=== PATIENT | male | born 1980 | race Caucasian/White ===

== ENCOUNTER 2025-06-14 14:56 | Emergency (ER) | payer MEDICAID, SELFPAY ==
[2025-06-14 14:59] VITALS: BP 154/93; PULSE 95; RESP 18; TEMP 37; O2SAT 98
--- NOTE | 2025-06-14 15:25 | XR_ITS ---
WS: [id number] XR chest 1V portable [id number] REASON FOR EXAM: shortness of breath FINDINGS: The heart and the mediastinum are within normal limits. Calcified granulomatous disease bilaterally. No acute pulmonary parenchymal or pleural abnormality is identified. Mild degenerative spondylosis in the mid and lower thoracic spine. XR/XR chest 1V portable [id number] IMPRESSION: No acute chest abnormality.
--- NOTE | 2025-06-14 15:25 | ECG_ITS ---
[facility] Date: 2025-06-14 Pat Name: Germain Rushing Department: Room: Gender: Male Data Entry Processor: : 1980 Requested By: Nazanin Quarles Order Number: [id number] Sakshi MD: Rossy Brito M.D. Measurements Intervals [place] Rate: 91 P: 21 NH: 144 QRS: 22 QRSD: 103 T: 49 QT: 299 QTc: 368 Interpretive Statements SINUS RHYTHM NONSPECIFIC T-WAVE ABNORMALITY No previous ECG available for comparison Electronically Signed On 06-15-2025 14:33:55 CDT by Rossy Brito M.D. [email or web address]
--- NOTE | 2025-06-14 15:27 | ED_ITS ---
HPI - SOB/Dyspnea 2 General: Chief Complaint: Shortness of Breath/Dyspnea Stated Complaint: SOB High HR Time Seen by Provider: 06/14/25 15:11 History of Present Illness: HPI Narrative: Patient is 45-year-old gentleman without medical issues presents to the emergency room with shortness of breath and palpitations. He felt like he had a anxiety issue all of a sudden but he was not anxious at all. He stated that he felt like the shortness of breath was sweeping across his chest, followed by tachycardia. He retrieved a oxygen saturation monitor and noted that his heart rate was going in the 120s for no reason, and was causing his shortness of breath. This occurred at noon today. He thought maybe he needed to go for a walk. He went for a walk, and the same thing occurred again. This initially occurred at rest. He has had some upper respiratory symptoms in the last couple weeks that was going through his house. No fevers. Home therapy: Oxygen saturation, magnesium, aspirin Associated symptoms: Reports palpitations; Deny abdominal pain, chest pain, fever(s), lightheadedness, nausea or vomiting Related Data Previous Rx's ?Medication ?Instructions ?Recorded albuterol sulfate 90 mcg/actuation 2 inh inhalation QI D PRN shortness 05/26/25 aerosol inhaler (Ventolin HFA) of breath or wheezing # 8.5 grams mupirocin 2 % topical ointment 1 applic topical BID #2 2 grams 05/26/25 (Centany) sulfamethoxazole 800 1 tab PO BID 10 days #20 tab s 05/26/25 mg-trimethoprim 160 mg tablet (Bactrim DS) Allergies Allergy/AdvReac Type Severity Reaction Status Date / Time acetaminophen (From Percocet) Allergy Severe ADR-Anxiety Verified 05/26/25 11:10 oxycodone (From Percocet) Allergy Severe ADR-Anxiety Verified 05/26/25 11:10 erythromycin base Allergy Unknown Verified 06/14/25 15:09 Review of Systems 2 General: Reports: 10 or more systems reviewed and unremarkable except in HPI and below Const: Denies: fever(s) or chills Eyes: Denies: change in vision or blurry vision ENMT: Reports: nasal congestion (recently); Denies: throat pain Card: Reports: palpitations, irregular heart rhythm (unsure, thinks regular) and dyspnea on exertion; Denies: chest pain or lightheadedness Resp: Reports: dyspnea; Denies: productive cough or non-productive cough GI: Denies: abdominal pain, nausea or vomiting : Denies: flank pain or difficulty urinating Musc: Denies: neck pain or back pain Skin/Breast: Denies: rash or pruritus Neuro: Denies: headache(s) or numbness in extremities Psych: Reports: anxiety (synthetically); Denies: depression PFSH ED 2 PFSH: Social History Smoking and tobacco/nicotine status: unknown if used tobacco/nicotine Physical Exam 2 Const: COMMON NORMALS: no acute distress, average body habitus and patient oriented x3 EXAM LIMITATIONS: no altered mental status GENERAL APPEARANCE: cooperative and comfortable HENMT: COMMON NORMALS: normocephalic, atraumatic and TM's normal bilaterally (partially obscured by cerumen bilaterally) HEAD & SCALP: normocephalic and atraumatic TYMPANIC MEMBRANE: TM's normal bilaterally (partially obscured by cerumen bilaterally) Eye: COMMON NORMALS: Equal, round and reactive pupils present, EOMs intact bilaterally, conjunctivae normal, no scleral icterus and normal visual hill by confrontation CONJUNCTIVA: Yes conjunctivae normal PUPIL: Yes Equal, round and reactive pupils present Lymph: LYMPHATIC: no lymphadenopathy noted Chest: COMMONS NORMALS: normal inspection of the chest and normal palpation of entire chest wall Resp: COMMON NORMALS: normal respiratory effort, No retractions and clear to auscultation bilaterally AUSCULTATION: clear to auscultation bilaterally Cardio: COMMON NORMALS: regular rate and regular rhythm RATE: regular rate RHYTHM: regular rhythm HEART SOUNDS: Murmur heart sound present (mid systolic) GI: COMMON NORMALS: Normal to inspection, nondistended, normoactive bowel sounds present, Soft to palpation, non-tender and No hepatosplenomegaly present PALPATION: Yes Soft to palpation and Yes No hepatosplenomegaly present : COMMON NORMALS: Yes no CVA tenderness BLADDER/KIDNEY EXAM: Yes no CVA tenderness Back/Pelvis: COMMON NORMALS: no CVA tenderness Neuro: COMMON NORMALS: patient oriented x3 Psych: COMMON NORMALS: mental status grossly normal, Normal thought process present, cooperative, normal affect, speech normal and activity/motor behavior normal SPEECH: Yes normal speech THOUGHT PROCESS: Normal thought process present Course 2 Vital Signs: Vital signs: Vital Signs Temperature 98.6 F 06/14/25 14:59 Pulse Rate 82 06/14/25 16:44 Respiratory Rate 23 H 06/14/25 16:44 Blood Pressure 139/90 06/14/25 16:44 Pulse Oximetry 96 06/14/25 16:44 MDM - SOB/Dyspnea Medical Decision Making Patient is a 45-year-old gentleman without medical issues presents with an odd feeling of shortness of breath, synthetic anxiety, and palpitations. His palpitations did feel regular. No history of A-fib. He does not drink any alcohol. He took a magnesium, which has somewhat resolved the issues. He did note his oxygen saturation going down and his heart rate going on evaluation when he had the symptoms at home. Will obtain routine cardiac workup with cardiac equivalency concerns, outside of 3 hours however. If initial troponin is negative, no reason to continue cardiac workup. He is Wells score is 0, however will check a D-dimer to rule out a coagulopathy with his palpitations. Workup is negative. Advice given regarding mild decrease in CO2 at 21, and magnesium at 1.8. Palpitations could be at the lower side of magnesium. This could be SVT. I do not have any evidence of reentry tachycardia during his evaluation and monitoring in the ED. Plan is to wear a Holter monitor for 72 hours. Case management referral has been made. Patient will follow-up with primary care as well. Medical Records I reviewed the patient's medical records. Lab Data I reviewed the patient's lab results. 06/14/25 15:33 06/14/25 15:33 Labs/Radiology: Radiology Impressions Chest X-Ray 06/14/25 15:25 IMPRESSION: No acute chest abnormality. Laboratory Results WBC 11.95 10^3/uL (3.29-11.43) H 06/14/25 15: RBC 4.71 10^6/uL (3.85-5.65) 06/14/25 15:33 Hgb 14.30 g/dL (11.27-16.99) 06/14/25 15: Hct 42.9 % (37-53) 06/14/25 15: MCV 91.1 fl (82-101) 06/14/25 15:33 MCH 30.4 pg (27-33) 06/14/25 15:33 MCHC 33.3 g/dL (30-55) 06/14/25 15:33 RDW 12.1 % (12.1-15.1) 06/14/25 15:33 Plt Count 279 10^3/cmm (157-399) 06/14/25 15:33 MPV 10.8 fL (7.4-10.4) H 06/14/25 15:33 Neut % (Auto) 69.1 % 06/14/25 15:33 Lymph % (Auto) 21.0 % 06/14/25 15:33 [place] % (Auto) 6.5 % 06/14/25 15:33 Eos % (Auto) 2.8 % 06/14/25 15:33 Baso % (Auto) 0.3 % 06/14/25 15:33 Neut # (Auto) 8.27 10^3/uL (1.8-7.7) H 06/14/25 15:33 Lymph # (Auto) 2.5 10^3/uL (0.8-4.8) 06/14/25 15:33 [place] # (Auto) 0.8 10^3/uL (0.2-0.9) 06/14/25 15:33 Eos # (Auto) 0.3 10^3/uL (0.0-0.8) 06/14/25 15:33 Baso # (Auto) 0.0 10^3/uL (0.0-0.1) 06/14/25 15:33 Nucleated RBC % (auto) 0 % 06/14/25 15: Nucleated RBCs # 0.0 /100WBC 06/14/25 15:33 D-Dimer 0.36 ug/mLFEU (0-0.59) 06/14/25 15:33 Sodium 138 mmol/L (136-145) 06/14/25 15:33 Potassium 3.7 mmol/L (3.5-5.1) 06/14/25 15:33 Chloride 99 mmol/L (98-107) 06/14/25 15:33 Carbon Dioxide 21 mmol/L (22-29) L 06/14/25 15:33 Anion Gap 21.7 (5-19) H 06/14/25 15:33 BUN 12 mg/dL (6-20) 06/14/25 15:33 Creatinine 0.7 mg/dL (0.7-1.2) 06/14/25 15:33 GFR Calculation 122.5 mL/min (90-130) 06/14/25 15:33 Glucose 115 mg/dL (65-115) 06/14/25 15:33 Calculated Osmolality 287 mOsm/kg (285-295) 06/14/25 15:33 Calcium 9.2 mg/dL (8.5-10.5) 06/14/25 15:33 Magnesium 1.8 mg/dL (1.7-2.3) 06/14/25 15:33 Total Bilirubin 0.5 mg/dL (0.15-1.2) 06/14/25 15:33 AST 23 U/L (0-40) 06/14/25 15:33 ALT 34 U/L (0-41) 06/14/25 15:33 Alkaline Phosphatase 95 U/L (40-130) 06/14/25 15:33 Troponin T Baseline < 6 ng/L (0-15) 06/14/25 15:33 NT-Pro-B Natriuret Pep 78 pg/mL (0-125) 06/14/25 15:33 Total Protein 7.2 g/dL (6.6-8.7) 06/14/25 15:33 Albumin 4.3 g/dL (3.5-5.2) 06/14/25 15:33 Globulin 2.9 g/dL (1.3-4.6) 06/14/25 15:33 TSH 1.06 uIU/mL (0.27-4.20) 06/14/25 15:33 Influenza A (PCR) Negative (Negative) 06/14/25 15:33 Influenza Type B (PCR) Negative (Negative) 06/14/25 15:33 RSV (PCR) Negative (Negative) 06/14/25 15:33 SARS-CoV-2 (PCR) Negative (Negative) 06/14/25 15:33 All radiology interpretation(s) finalized by discharge ED provider radiology interpretation(s): No acute changes, possible viral pattern with central congestion on my view EKG Data EKG 1: Interpretation: Normal sinus rhythm, normal axis, no ST segment elevation, axis flipped lead III, qtc 361 Discharge Plan Discharge Patient Disposition: Home Clinical Impression: Palpitations, Mild shortness of breath Condition: Stable Prescriptions: No Action sulfamethoxazole-trimethoprim [Bactrim DS] 800-160 mg tablet 1 tab PO BID 10 Days Qty: 20 0RF mupirocin [Centany] 2 % ointment 1 applic topical BID Qty: 22 0RF albuterol sulfate [Ventolin HFA] 90 mcg/actuation HFA aerosol inhaler 2 inh inhalation QID PRN (Reason: shortness of breath or wheezing) Qty: 8.5 0RF Discharge Orders: Discharge ED (Routine); Ordered 06/14/25 Ordered By: Nazanin Quarles Discharge Diet: Low Salt Discharge Activity: Resume usual activity Patient Instructions: Heart Palpitations (ED), DASH Eating Plan (ED), Patient Portal & Violette Instructions Activity Restrictions/Additional Instructions: - Obtain magnesium lowest dose [id number] and take every night before bed. (Magnesium is a smooth muscle relaxer and your level is at the very bottom of normal. This may completely fix your palpitations) -When you follow-up with your new doctor, discuss this, and any concerns for sleep apnea, and your blood pressure as we discussed. I did give you a DASH diet information to help with regulating your blood pressure as natural as possible -Increase your water intake today. Your CO2 was slightly low at 21. Take an additional noncaffeinated beverage if you do not like water x 1 L prior to this evening. -Follow-up with your primary care physician. Make an appointment. Try to make an appointment today before they closed. - Case management will contact you for your Holter monitoring for 3 days. I have made a referral -Return to ED if this occurs again. Print Language: Croatian Coding Level of Care Code ED Residential Leasing Manager for Vannessa Hankins
[2025-06-14 15:38] VITALS: BP 149/49; PULSE 90; RESP 23; O2SAT 97
[2025-06-14 15:40] LABS: Hematocrit 42.9 % (37-53); Hemoglobin 14.30 g/dL (11.27-16.99); Mean Corpuscular HGB Conc 33.3 g/dL (30-55); Mean Corpuscular Hemoglobin 30.4 pg (27-33); Mean Corpuscular Volume 91.1 fl (82-101); Nucleated Red Blood Cells % 0 %; Platelet Count 279 10^3/cmm (157-399); Red Blood Count 4.71 10^6/uL (3.85-5.65); White Blood Count 11.95 10^3/uL (3.29-11.43)
[2025-06-14 15:59] LABS: Troponin(5th) Baseline < 6 ng/L (0-15)
[2025-06-14 16:16] LABS: Respiratory Syncytial Virus Ce NEGATIVE (Negative); SARS-CoV-2 PCR NEGATIVE (Negative)
[2025-06-14 16:26] LABS: Alanine Aminotransferase 34 U/L (0-41); Albumin Level 4.3 g/dL (3.5-5.2); Alkaline Phosphatase 95 U/L (40-130); Anion Gap 21.7 (5-19); Aspartate Amino Transferase 23 U/L (0-40); Blood Urea Nitrogen 12 mg/dL (6-20); Calcium 9.2 mg/dL (8.5-10.5); Carbon Dioxide 21 mmol/L (22-29); Chloride 99 mmol/L (98-107); Creatinine Clr Calc Pharmacy 201.7684; Globulin 2.9 g/dL (1.3-4.6); Glucose 115 mg/dL (65-115); Magnesium 1.8 mg/dL (1.7-2.3); NT Pro B Type Natriuretic Pept 78 pg/mL (0-125); Osmolality Calculated 287 mOsm/kg (285-295); Potassium 3.7 mmol/L (3.5-5.1); Sodium 138 mmol/L (136-145); Thyroid Stimulating Hormone 1.06 uIU/mL (0.27-4.20); Total Protein 7.2 g/dL (6.6-8.7)
[2025-06-14 16:44] VITALS: BP 139/90; PULSE 82; RESP 23; O2SAT 96
--- NOTE | 2025-06-17 07:25 | DCPLANNER ---
messaged heart care for er f/u
== END 2025-06-14 16:59 | disposition home or self-care (01) ==
PROVIDERS: Emergency Provider Physician Assistant
DX: R00.2 Palpitations (principal); R06.02 Shortness of breath; Z11.52 Encounter for screening for COVID-19
CPT/HCPCS: 71045; 80053; 83735; 83880; 84443; 84484; 85025; 85378; 87637; 93005; 99285

== ENCOUNTER 2025-08-24 02:18 | Emergency (ER) | payer MEDICAID, SELFPAY ==
[2025-08-24] VITALS (7 sets, daily range): BP systolic 130–141; BP diastolic 82–93; PULSE 100–115; RESP 16–20; TEMP 36.9; O2SAT 96–98; BMI 42.0
[2025-08-24 02:49] LABS: Hematocrit 43.4 % (37-53); Hemoglobin 14.10 g/dL (11.27-16.99); Mean Corpuscular HGB Conc 32.5 g/dL (30-55); Mean Corpuscular Hemoglobin 30.3 pg (27-33); Mean Corpuscular Volume 93.3 fl (82-101); Nucleated Red Blood Cells % 0 %; Platelet Count 302 10^3/cmm (157-399); Red Blood Count 4.65 10^6/uL (3.85-5.65); White Blood Count 19.08 10^3/uL (3.29-11.43)
--- NOTE | 2025-08-24 02:54 | XRR_ITS ---
PROCEDURE INFORMATION: Exam: XR Chest Exam date and time: 08/24/2025 2:53 AM Age: 45 years old Clinical indication: Cough and shortness of breath; Cough and congestion with SOB TECHNIQUE: Imaging protocol: Radiologic exam of the chest. Views: 1 view. COMPARISON: CR XR chest 1V portable [id number] 06/14/2025 3:51 PM FINDINGS: Lungs: Unremarkable. No consolidation. Pleural spaces: Unremarkable. No pleural effusion. No pneumothorax. Heart/Mediastinum: Unremarkable. No cardiomegaly. Bones/joints: Unremarkable. XR/XR chest 1V portable [id number] IMPRESSION: No acute findings.
--- NOTE | 2025-08-24 03:27 | ED_ITS ---
HPI - URI/Sore Throat 2 General: Chief Complaint: Upper Respiratory Infection Stated Complaint: flu or cold like symptoms Time Seen by Provider: 08/24/25 02:46 History of Present Illness: Patient is a 45-year-old male who presents respiratory problems. He reports a history of intermittent asthma for which he has an albuterol inhaler that he rarely uses. Today, he was doing renovation work at home that involved sanding, which appears to have triggered his symptoms. He has been experiencing persistent coughing for 4-5 hours prior to arrival, describing his chest as feeling 'heavy' and noting that he has to 'work to breathe.' The cough has been productive of yellow to clear sputum. He has used his albuterol inhaler three times today (9 AM and 1 PM noted), with temporary relief lasting approximately 2 hours before symptoms return. Patient is concerned because his inhaler appears to be running low, and he was worried about potentially worsening respiratory distress without medication access. He also mentions that his entire family is currently ill, though they are not experiencing the same degree of respiratory symptoms. Patient denies fever but reports general weakness over the past two days. He has experienced some throat soreness which he attributes to the forceful coughing. He reports some gastrointestinal symptoms including 'runny stool, ' though notes he has had a cholecystectomy which may contribute to this. His symptoms notably improved after leaving his home environment to come to the ER. Related Data Previous Rx's ?Medication ?Instructions ?Recorded albuterol sulfate 90 mcg/actuation 2 inh inhalation QI D PRN shortness 05/26/25 aerosol inhaler (Ventolin HFA) of breath or wheezing # 8.5 grams mupirocin 2 % topical ointment 1 applic topical BID #2 2 [facility] sulfamethox[facility] 800 1 tab PO BID 10 days #20 tab s 05/26/25 mg-trimethoprim 160 mg tablet (Bactrim DS) doxycycline hyclate 100 mg tablet 100 mg PO BID 7 days #14 tabs 08/24/25 methylprednisolone 4 mg tablets in See Rx Instructions PO .COMPLEX 08/24/25 a dose pack (Medrol (Oziel)) #21 ea Allergies Allergy/AdvReac Type Severity Reaction Status Date / Time acetaminophen (From Percocet) Allergy Severe ADR-Anxiety Verified 05/26/25 11:10 oxycodone (From Percocet) Allergy Severe ADR-Anxiety Verified 05/26/25 11:10 erythromycin base Allergy Unknown Verified 06/14/25 15:09 [facility] ED 2 PFSH: Social History Smoking and tobacco/nicotine status: unknown if used tobacco/nicotine Physical Exam 2 Const: COMMON NORMALS: no acute distress GENERAL APPEARANCE: cooperative; not ill appearing and not frail appearing HENMT: COMMON NORMALS: normocephalic, atraumatic and Normal external nose present HEAD & SCALP: normocephalic and atraumatic FACE & SINUS: normal facial exam and face symmetric NOSE: Normal external nose present Eye: COMMON NORMALS: Equal, round and reactive pupils present and EOMs intact bilaterally PUPIL: Yes Equal, round and reactive pupils present Neck/C-Spine: GENERAL: Yes trachea midline Chest: CHEST: Yes Symmetrical chest wall rise Resp: COMMON NORMALS: normal respiratory effort, No retractions and No use of accessory muscles AUSCULTATION: wheezes (mild intermittent) Cardio: COMMON NORMALS: regular rhythm RATE: tachycardic RHYTHM: regular rhythm GI: COMMON NORMALS: Normal to inspection, nondistended, normoactive bowel sounds present Extremity: COMMON NORMALS: no pedal edema Neuro: LAILA COMA SCALE: document GCS findings Laila coma scale eye opening: Spontaneous Laila coma scale verbal response: Orientated [place] coma scale motor response: Obey commands Laila coma scale total score: 15 S ENSORY EXAM: Yes extremities (intact) Psych: COMMON NORMALS: speech normal SPEECH: Yes normal speech Skin: COMMON NORMALS: no rashes or lesions noted GENERAL SKIN EXAM: no rashes or lesions noted Course 2 Vital Signs: Vital signs: Vital Signs Temperature 98.4 F 08/24/25 02:26 Pulse Rate 115 H 08/24/25 03:57 Respiratory Rate 20 H 08/24/25 03:57 Blood Pressure 141/82 08/24/25 03:57 Pulse Oximetry 97 08/24/25 03:57 Oxygen Delivery Me thod Room Air 08/24/25 03:40 MDM - URI/Sore Throat Medical Decision Making Improved after DuoNeb here. Chest x-ray is nonacute. However, white blood cell count is 19. Normal differential. He is afebrile here. He is mildly tachycardic. Other vitals are stable. Room air saturations are about 95%. He is given a DuoNeb treatment, prednisone, and doxycycline as he has significant leukocytosis. He stable for discharge. Return for worsening symptoms Lab Data 08/24/25 02:43 08/24/25 02:43 Radiology Impressions Chest X-Ray 08/24/25 02:54 IMPRESSION: No acute findings. Laboratory Results WBC 19.08 10^3/uL (3.29-11.43) H 08/24/25 02:43 RBC 4.65 10^6/uL (3.85-5.65) 08/24/25 02:43 Hgb 14.10 g/dL (11.27-16.99) 08/24/25 02:43 Hct 43.4 % (37-53) 08/24/25 02:43 MCV 93.3 fl (82-101) 08/24/25 02:43 MCH 30.3 pg (27-33) 08/24/25 02:43 MCHC 32.5 g/dL (30-55) 08/24/25 02:43 RDW 12.4 % (12.1-15.1) 08/24/25 02:43 Plt Count 302 10^3/cmm (157-399) 08/24/25 02:43 MPV 10.8 fL (7.4-10.4) H 08/24/25 02:43 Neut % (Auto) 69.0 % 08/24/25 02:43 Lymph % (Auto) 18.1 % 08/24/25 02:43 [place] % (Auto) 6.2 % 08/24/25 02:43 Eos % (Auto) 5.9 % 08/24/25 02:43 Baso % (Auto) 0.3 % 08/24/25 02:43 Neut # (Auto) 13.18 10^3/uL (1.8-7.7) H 08/24/25 02:43 Lymph # (Auto) 3.5 10^3/uL (0.8-4.8) 08/24/25 02:43 [place] # (Auto) 1.2 10^3/uL (0.2-0.9) H 08/24/25 02:43 Eos # (Auto) 1.1 10^3/uL (0.0-0.8) H 08/24/25 02:43 Baso # (Auto) 0.1 10^3/uL (0.0-0.1) 08/24/25 02:43 Nucleated RBC % (auto) 0 % 08/24/25 02:43 Nucleated RBCs # 0.0 /100WBC 08/24/25 02:43 Sodium 137 mmol/L (136-145) 08/24/25 02:43 Potassium 4.3 mmol/L (3.5-5.1) 08/24/25 02:43 Chloride 100 mmol/L (98-107) 08/24/25 02:43 Carbon Dioxide 28 mmol/L (22-29) 08/24/25 02:43 Anion Gap 13.3 (5-19) 08/24/25 02:43 BUN 25 mg/dL (6-20) H 08/24/25 02:43 Creatinine 0.9 mg/dL (0.7-1.2) 08/24/25 02:43 GFR Calculation 91.7 mL/min (90-130) 08/24/25 02:43 Glucose 147 mg/dL (65-115) H 08/24/25 02:43 Calculated Osmolality 291 mOsm/kg (285-295) 08/24/25 02:43 Calcium 9.3 mg/dL (8.5-10.5) 08/24/25 02:43 Total Bilirubin 0.4 mg/dL (0.15-1.2) 08/24/25 02:43 AST 19 U/L (0-40) 08/24/25 02:43 ALT 23 U/L (0-41) 08/24/25 02:43 Alkaline Phosphatase 84 U/L (40-130) 08/24/25 02:43 Total Protein 7.5 g/dL (6.6-8.7) 08/24/25 02:43 Albumin 4.2 g/dL (3.5-5.2) 08/24/25 02:43 Globulin 3.3 g/dL (1.3-4.6) 08/24/25 02:43 All radiology interpretation(s) finalized by discharge Discharge Plan Discharge Patient Disposition: Home Clinical Impression: Bronchitis Condition: Stable Prescriptions: New methylprednisolone [Medrol (Oziel)] 4 mg tablets,dose pack See Rx Instructions .ROUTE .COMPLEX Qty: 21 0RF Rx Instructions: orally per package directions doxycycline hyclate 100 mg tablet 100 mg PO BID 7 Days Qty: 14 0RF No Action sulfamethoxazole-trimethoprim [Bactrim DS] 800-160 mg tablet 1 tab PO BID 10 Days Qty: 20 0RF mupirocin [Centany] 2 % ointment 1 applic topical BID Qty: 22 0RF albuterol sulfate [Ventolin HFA] 90 mcg/actuation HFA aerosol inhaler 2 inh inhalation QID PRN (Reason: shortness of breath or wheezing) Qty: 8.5 0RF Discharge Orders: Discharge ED (Routine); Ordered 08/24/25 Ordered By: Slim Stapleton Patient Instructions: Acute Bronchitis (ED), Opioid Safety, Pain Management, Patient Portal & Violette Instructions Activity Restrictions/Additional Instructions: Use your inhaler every 4 hours while awake, for the first 24 hours scheduled. Then you may use it as needed. Medications as directed. Return for any problems. See your doctor next week for follow-up appointment. Print Language: Tuvaluan Coding Level of Care Code ED Electrical Helper for Vannessa Hankins
[2025-08-24 03:28] LABS: Alanine Aminotransferase 23 U/L (0-41); Albumin Level 4.2 g/dL (3.5-5.2); Alkaline Phosphatase 84 U/L (40-130); Anion Gap 13.3 (5-19); Aspartate Amino Transferase 19 U/L (0-40); Blood Urea Nitrogen 25 mg/dL (6-20); Calcium 9.3 mg/dL (8.5-10.5); Carbon Dioxide 28 mmol/L (22-29); Chloride 100 mmol/L (98-107); Globulin 3.3 g/dL (1.3-4.6); Glucose 147 mg/dL (65-115); Osmolality Calculated 291 mOsm/kg (285-295); Potassium 4.3 mmol/L (3.5-5.1); Sodium 137 mmol/L (136-145); Total Protein 7.5 g/dL (6.6-8.7)
[2025-08-24] MEDS: albuterol 8 gm MDI 2 PUFF INHALATION (03:38)
[2025-08-24] MEDS: methylPREDNISolone sod succ 125 mg/2 mL INJ 80 MG IM (03:49)
[2025-08-24 04:24] LABS: Coronavirus 229E,HKU1,NL63,OC4 Not Detected (NOT DETECT); Parainfluenza Virus Type 1 Not Detected (NOT DETECT); Parainfluenza Virus Type 2 Not Detected (NOT DETECT); Parainfluenza Virus Type 3 Not Detected (NOT DETECT); Parainfluenza Virus Type 4 Not Detected (NOT DETECT); SARS-COV-2 Not Detected (NOT DETECT)
== END 2025-08-24 03:58 | disposition home or self-care (01) ==
PROVIDERS: Emergency Provider Emergency Medicine
DX: J40 Bronchitis, not specified as acute or chronic (principal)
CPT/HCPCS: 36415; 71045; 80053; 85025; 87486; 87581; 87633; 94640; 96372; 99284; J2919; J3535; J9999